=== PATIENT | male | born 1935 | race Caucasian/White ===

== ENCOUNTER 2016-04-20 16:48 | Observation (INO) | payer MEDICARE, MEDICAID ==
--- NOTE | 2016-04-20 17:00 | ED.PDOC ---
History of Present Illness - General Chief Complaint: Neuro Symptoms/Deficits Stated Complaint: agitation,altered mental status Time Seen by Provider: 04/20/16 16:59 Source: patient Exam Limitations: clinical condition, physical impairment Additional Information: Patient with tracheostomy tube and tongue surgery - History of Present Illness Initial Comments: Mr. Goodman Rivers,Kimberly.Kimberly. brought by ambulance after he was found to be agitated with sob by the family .On EMS arrival he was found to saturating O2-77% with 4L O2 by tracheostomy.He was then suctioned by ems and took out thick dry mucus plug.He has history of surgeries on his tongue,trachea and lungs due to cancer.No radiation or chemo.He is on 4L O2 by trach. Timing/Duration: 1-3 hours Severity: moderate Improving Factors: nothing Worsening Factors: nothing Associated Symptoms: denies symptoms Allergies/Adverse Reactions: Allergies NO KNOWN ALLERGY Allergy (Verified 02/15/16 01:05) Home Medications: Ambulatory Orders RX: Albuterol Sulfate 0.63 mg IN QID 09/11/13 RX: Dutasteride [Avodart] 0.5 mg PO DAILY 09/11/13 RX: Furosemide [Lasix Tab] 40 mg PO QAM 09/11/13 RX: HYDROcodone 10MG/APAP 325MG [[place] 10/325] 1 - 2 ea PO .Q6H PRN 09/11/13 RX: Insulin Lispro [Humalog] 0 unit SC ACHS PRN 09/11/13 RX: Metoprolol Succinate [Toprol Xl] 50 mg PO DAILY 09/11/13 RX: Omeprazole [Prilosec Cap] 40 mg PO ACBK 09/11/13 RX: Potassium Chloride [Micro-K] 10 meq PO DAILY 09/11/13 RX: Sertraline HCl [Zoloft] 50 mg PO BEDTIME 09/11/13 RX: Tamsulosin [Flomax] 0.4 mg PO BEDTIME 09/11/13 RX: Zaleplon [Sonata] 10 mg PO BEDTIME 09/11/13 RX: Gabapentin 100 mg PO DAILY 07/05/15 RX: Gabapentin 200 mg PO BEDTIME 07/05/15 RX: Spironolactone [Aldactone] 50 mg PO QID 07/05/15 RX: Telmisartan 40 mg PO DAILY 07/05/15 RX: Enoxaparin Sodium 1 mg/kg [Lovenox 1 mg/kg] 1 mg SUBCU Q24H 02/14/16 RX: Nitroglycerin [Nitrostat] 1 ea SL Q5MIN PRN #1 sub 02/15/16 Review of Systems - Review of Systems Constitutional: States: no symptoms reported EENTM: States: no symptoms reported Respiratory: States: short of breath Cardiology: States: no symptoms reported Gastrointestinal/Abdominal: States: no symptoms reported Genitourinary: States: no symptoms reported Musculoskeletal: States: no symptoms reported Skin: States: no symptoms reported Neurological: States: no symptoms reported Endocrine: States: no symptoms reported Hematologic/Lymphatic: States: no symptoms reported Past Medical History (General) - Patient Medical History Hx Seizures: No Hx Stroke: No Hx Dementia: No Hx Asthma: Yes Hx of COPD: Yes Hx Cardiac Disorders: Yes Hx Congestive Heart Failure: Yes Hx Pacemaker: No Hx Hypertension: Yes Hx Thyroid Disease: No Hx Diabetes: Yes Hx Gastroesophageal Reflux: Yes Hx Renal Disease: No Hx Cancer: Yes - Tongue Hx MRSA: Yes MRSA Source:: Sputum Surgical History: cancer surgery, other - throat,tongue,lung-cancer - Vaccination History Hx Influenza Vaccination: Yes Hx Pneumococcal Vaccination: Yes - Social History Hx Tobacco Use: Yes Hx Chewing Tobacco Use: Yes Hx Alcohol Use: No Hx Substance Use: No Hx Physical Abuse: No Hx Emotional Abuse: No - Activities of Daily Living Patient Lives Alone: No - family Grooming Ability: Independent Eating (Feeding) Ability: Independent Toileting Ability: Independent Family Medical History - Family History Father Family History: Unknown Living Status: Cause of : heart attack Hx Family Asthma: No Hx Family Congestive Heart Failure: No Hx Family Hypertension: Yes Hx Family Stroke: No Hx Cardiac Disease: Yes Hx Family Diabetes: No Hx Family Cancer: Yes - multiple family members-lung ,colon Mother Living Status: Cause of : kidney failure Hx Family Asthma: No Hx Family Congestive Heart Failure: No Hx Family Hypertension: Yes Hx Family Stroke: No Hx Cardiac Disease: No Hx Family Diabetes: No Hx Family Cancer: No Physical Exam - Physical Exam General Appearance: Alert, Anxious, No apparent distress Eye Exam: bilateral normal Ears, Nose, Throat: hearing grossly normal, normal ENT inspection, normal pharynx, other - tracheostomy patent Neck: non-tender, supple Respiratory: chest non-tender, respiratory distress - moderatwas suctioned by senior technical trainer breathing better, decreased breath sounds Cardiovascular/Chest: normal peripheral pulses, regular rate, rhythm, no gallop , no murmur Peripheral Pulses: radial,right: 2+, radial,left: 2+ Gastrointestinal/Abdominal: normal bowel sounds, non tender, soft, no organomegaly Back Exam: normal inspection, no CVA tenderness, no vertebral tenderness Extremity: non-tender, no pedal edema Neurologic: no motor/sensory deficits, alert Skin Exam: normal color, warm/dry Progress - EKG/XRAY/CT CT Ordered: Yes - head-no acute abnormalities noted Departure - Departure Clinical Impression: Uncontrolled hypertension, Altered awareness, transient, History of lung cancer , History of laryngeal cancer, H/O tongue cancer Time of Disposition: 21:13 - D/W Cecelia Limon-COURTNEY Hospitalist Disposition: Discharge to Home or Self Care Departure Forms: ED Discharge - Pt. Copy, Patient Portal Self Enrollment Referrals: Caio Velásquez MD [Primary Care Provider] - 1-2 Weeks Home Medications: Ambulatory Orders RX: Albuterol Sulfate 0.63 mg IN QID 09/11/13 RX: Dutasteride [Avodart] 0.5 mg PO DAILY 09/11/13 RX: Furosemide [Lasix Tab] 40 mg PO QAM 09/11/13 RX: HYDROcodone 10MG/APAP 325MG [[place] 10/325] 1 - 2 ea PO .Q6H PRN 09/11/13 RX: Insulin Lispro [Humalog] 0 unit SC ACHS PRN 09/11/13 RX: Metoprolol Succinate [Toprol Xl] 50 mg PO DAILY 09/11/13 RX: Omeprazole [Prilosec Cap] 40 mg PO ACBK 09/11/13 RX: Potassium Chloride [Micro-K] 10 meq PO DAILY 09/11/13 RX: Sertraline HCl [Zoloft] 50 mg PO BEDTIME 09/11/13 RX: Tamsulosin [Flomax] 0.4 mg PO BEDTIME 09/11/13 RX: Zaleplon [Sonata] 10 mg PO BEDTIME 09/11/13 RX: Gabapentin 100 mg PO DAILY 07/05/15 RX: Gabapentin 200 mg PO BEDTIME 07/05/15 RX: Spironolactone [Aldactone] 50 mg PO QID 07/05/15 RX: Telmisartan 40 mg PO DAILY 07/05/15 RX: Enoxaparin Sodium 1 mg/kg [Lovenox 1 mg/kg] 1 mg SUBCU Q24H 02/14/16 RX: Nitroglycerin [Nitrostat] 1 ea SL Q5MIN PRN #1 sub 02/15/16
[2016-04-20] MEDS ORDERED: IPRATROPIUM/ALBUTEROL 3 ML VIAL NEB ONE ×2 (17:03→17:09)
[2016-04-20] MEDS: cloNIDine HCL 0.1 MG TAB PO ONE ×2 (19:46→20:17)
[2016-04-20] MEDS ORDERED: SODIUM CHLORIDE 0.9% 10 ML VIAL ONE (19:53)
[2016-04-20] MEDS ORDERED: cloNIDine PATCH 0.2 MG/24HR 0.2 MG PATCH TD ONE ×2 (20:37→20:40)
[2016-04-20] MEDS ORDERED: SODIUM CHLORIDE 0.9% (FLUSH) 10 ML SYG IV PRN (22:41)
[2016-04-20] MEDS ORDERED: ALBUTEROL SULFATE 2.5 MG/3 ML VIAL NEB PRN (22:41)
[2016-04-20] MEDS ORDERED: GLUCAGON INJ 1 MG VIAL SUBCU PRN (22:46)
[2016-04-20] MEDS ORDERED: DEXTROSE 50% 25 GM/50 ML SYG IV PRN (22:46)
[2016-04-20] MEDS ORDERED: IV SET AND CAP CHANGE INJ INJ SCH (23:00)
[2016-04-21 04:02] VITALS: TEMP 98
[2016-04-21] MEDS ORDERED: SODIUM CHLORIDE 0.9% 10 ML VIAL IV PRN (06:49)
[2016-04-21] MEDS: INSULIN LISPRO 100 UNITS/ML PEN SUBCU SCH ×2 (07:30→11:43)
[2016-04-21] MEDS: IPRATROPIUM/ALBUTEROL 3 ML VIAL INH SCH ×2 (08:03→12:41)
[2016-04-21] MEDS ORDERED: SODIUM CHLORIDE 0.9% (FLUSH) 10 ML SYG IV SCH (09:00)
[2016-04-21] MEDS ORDERED: HYDROcodone 10MG/APAP 325MG 1 EA TAB PO PRN (09:26)
[2016-04-21] MEDS ORDERED: ZALEPLON 10 MG PO PRN (09:26)
[2016-04-21] MEDS ORDERED: NITROGLYCERIN 0.4 MG 25 EA TAB SL PRN (09:26)
[2016-04-21] MEDS ORDERED: GABAPENTIN 100 MG CAP PO SCH ×2 (09:30→21:00)
[2016-04-21] MEDS ORDERED: FUROSEMIDE 40 MG TAB PO SCH (09:30)
[2016-04-21] MEDS ORDERED: VALSARTAN 80 MG TAB PO SCH (09:30)
[2016-04-21] MEDS ORDERED: METOPROLOL SUCCINATE XL 50 MG TAB PO SCH (09:30)
[2016-04-21] MEDS ORDERED: DUTASTERIDE 0.5 MG CAP PO SCH (09:30)
[2016-04-21] MEDS ORDERED: NYSTATIN SUSPENSION 5 ML UD ONE (09:52)
[2016-04-21] MEDS ORDERED: OMEPRAZOLE CAP 20 MG CAP PO SCH (10:00)
[2016-04-21 10:08] VITALS: BP 136/79; O2SAT 100
--- NOTE | 2016-04-21 11:10 | SSS ---
SUPERVISING PHYSICIAN: Chio Velásquez MD HISTORY OF PRESENT ILLNESS: This is an 81-year-old male patient who has a long history of lung cancer with a left pneumonectomy as well as a throat and tongue cancer with a tracheostomy. He presented to the Emergency Room, agitated with altered mental status as well as shortness of breath. While he was in the ambulance, EMS reported that he had an O2 saturation of 77% on 4 liters via his tracheostomy. En route to the hospital, his tracheostomy was suctioned by EMS and they removed thick, dry mucus plug. He continued on 4 liters O2 by tracheostomy and his saturations came up to the low 90s. The family reported that on the day prior to admission he had stopped taking his oral medications and his mental status was altered. He usually is able to respond with yes/no questioning and interact with family, but he was unable to do that over the last two days and it progressively worsened. Since he had not taken his blood pressure medications, his blood pressure in the Emergency Room got as high as 203/102. It was also 218/94. A Catapres patch was placed on him and I was called for admission to the hospital. PAST MEDICAL HISTORY: 1. Atrial fibrillation. 2. Benign prostatic hypertension. 3. Diabetes mellitus, type 2. 4. Osteoporosis. 5. Congestive heart failure with an estimated ejection fraction of 70% by echocardiogram in 2005. 6. Coronary artery disease per CT[facility] in 2007. Dr. Lopze is following for moderate disease and at that time recommended medical management only. 7. Chronic obstructive pulmonary disease. 8. Lung cancer. 9. Throat cancer. 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 11. Cerebrovascular accident. PAST SURGICAL HISTORY: 1. Left lung resection in 1997. 2. Throat resection in 1995. 3. Tracheostomy in 2015. 4. Throat surgery in January of [address] Shearer. ALLERGIES: NO KNOWN ALLERGIES SOCIAL HISTORY: He lives at home with his . He has a past history of smoking and smokeless tobacco. He drinks alcohol socially. He denies any illicit drug use. OUTPATIENT MEDICATIONS: Per the EMR. HOSPITAL COURSE: The patient's blood pressure in the Emergency Room got as low as 188/68 and then overnight, it has stabilized down to 125/72. During the night, he was unable to answer any questions of the nursing staff. He was fairly lethargic until early this morning and he actually became more alert. He was able to answer simple yes/no questions and per family and Dr. Velásquez, he is now fairly close to his baseline. Overnight, his oxygen saturation stayed 94 % or higher. His CBC was fairly stable although his hemoglobin was 9.8 and his hematocrit was 29.9 this morning. Neutrophils were 86. His metabolic panel was stable with the exception of his creatinine was 1.32. Today, he is stable enough to be discharged home. DISCHARGE PLAN: The patient will be discharged home in stable condition. I have re-started his home medications and if he takes his oral medications without problems, I will discontinue the Catapres patch. I called [facility] and they will see him both on Sunday and Sunday to check his blood pressure as well as if he is taking his medications and his mental status. He has a followup appointment with Dr. Velásquez on 04/24/16, at 2 :45. It would probably be beneficial for him to be on hospice at least consider it at some point. I believe he sees Dr. Herrera and Dr. Beltre who is an interventional oncologist and he was supposed to have seen them in March sometime, but we have not gotten a report on that. He is to resume his previous diet. His family has been instructed to watch for mucus plugs in the trachea. I have given him robitussin tid to thin secreations. He is to followup with Dr. Velásquez's office, [facility] or return to the hospital if there are any recurrent symptoms or problems. DISCHARGE MEDICATIONS: 1. Albuterol. 2. Spironolactone. 3. Avodart. 4. Telmisartan. 5. Flomax. 6. Furosemide. 7. Gabapentin. 8. Nitroglycerin. 9. Hydrocodone. 10. Nystatin. 11. Omeprazole. 12. Sonata. 13. Metoprolol. 14. Sertraline. 15. Fluticasone. 16. Insulin. 17. Milk of Magnesia. 18. Morphine liquid. 19. Robitussin. Dr. Velásquez is the supervising physician and available for consultation. #[id number] [facility]
[2016-04-21] MEDS ORDERED: ALBUTEROL SULFATE 0.63 MG IN SCH (13:00)
[2016-04-21] MEDS ORDERED: NYSTATIN SUSPENSION 5 ML UD MT SCH (13:00)
[2016-04-21] MEDS ORDERED: guaiFENesin 100 MG/5 ML 10 ML UD PO SCH (15:00)
[2016-04-21] MEDS ORDERED: TAMSULOSIN 0.4 MG CAP PO SCH (21:00)
[2016-04-21] MEDS ORDERED: SERTRALINE HCL 50 MG TAB PO SCH (21:00)
[2016-04-22] MEDS ORDERED: SPIRONOLACTONE 25 MG TAB PO SCH (09:00)
--- NOTE | 2016-04-24 00:50 | CT ---
EXAM: Head CLINICAL INDICATION: 81-year-old female with high blood pressure and altered mental status. COMPARISON: 10/29/2015. TECHNIQUE: CT brain without contrast. FINDINGS: Multifocal regions of patchy hypoattenuation are present in a subcortical and periventricular deep white matter distribution, nonspecific; however, most likely represent small vessel ischemic disease, age indeterminate. Focal area of ovoid hypoattenuation present throughout the bilateral basal ganglia stable in comparison to the previous examination suggesting sequela of prior lacunar infarction. The ventricles, sulci, and cisterns are symmetric and unremarkable. The joyner-white matter differentiation is preserved. There is no mass effect, midline shift, intra- or extra-axial fluid collection/acute hemorrhage. The osseous structures are unremarkable. The paranasal sinuses reveal thickening of the RIGHT sphenoid sinus suggesting sinus disease otherwise remaining paranasal sinuses and mastoid air cells are clear. 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 IMPRESSION: 1. No acute intracranial abnormalities. Nonspecific white matter change most likely small vessel ischemic disease, age indeterminate. 2. CT is insensitive for early evaluation of acute stroke. If there is clinical concern for acute ischemia, an MRI may be considered. Electronically signed by: Rosibel Mandujano MD 04/20/2016 8:12 PM GRADING MACHINE OPERATOR
--- NOTE | 2016-04-27 10:47 | RAD ---
EXAM DESCRIPTION: Chest,1 View CLINICAL HISTORY: 81 years Male possible aspiration, diff breathing COMPARISON: 02/14/2016. FINDINGS: There is complete opacification of the left hemithorax with shift of the heart and mediastinum towards the left and elevation of the left hemidiaphragm. The changes are likely related to previous left pneumonectomy. Mild opacity at the medial right lung base appears similar and may represent mild atelectasis. No pneumothorax is visualized. There is a stable left chest port. IMPRESSION: There appear to be changes from previous left pneumonectomy. Mild opacity at the medial right lung base appears similar and may represent atelectasis. Electronically signed by: Tom Faustin MD 04/20/2016 5:47 PM ULTRASOUND TECHNOLOGIST SONOGRAPHER
== END 2016-04-21 14:15 | disposition home or self-care (01) ==
LOC: ER 16:48 → MS 21:17
PROVIDERS: ADMIT Nurse Practitioner Acute Care; ATTEND Nurse Practitioner Acute Care
DX: R06.02 Shortness of breath (principal); R09.02 Hypoxemia; R41.82 Altered mental status, unspecified; I10 Essential (primary) hypertension; I48.91 Unspecified atrial fibrillation; N40.0 Benign prostatic hyperplasia without lower urinary tract symptoms; E11.9 Type 2 diabetes mellitus without complications; M81.0 Age-related osteoporosis without current pathological fracture; I50.9 Heart failure, unspecified; I25.10 Atherosclerotic heart disease of native coronary artery without angina pectoris; J44.9 Chronic obstructive pulmonary disease, unspecified; Z93.0 Tracheostomy status; Z79.4 Long term (current) use of insulin; Z79.899 Other long term (current) drug therapy; Z85.118 Personal history of other malignant neoplasm of bronchus and lung; Z85.810 Personal history of malignant neoplasm of tongue; Z85.20 Personal history of malignant neoplasm of unspecified respiratory organ; Z86.73 Personal history of transient ischemic attack (TIA), and cerebral infarction without residual deficits; Z87.891 Personal history of nicotine dependence
CPT/HCPCS: 36415 ×2; 36416; 70450; 71010; 80053 ×2; 81001; 82948 ×3; 85025 ×2; 87070; 93005; 94640 ×3; 94762; 99284; G0378; J7620 ×3

== ENCOUNTER 2016-06-16 14:12 | Inpatient (IN) | payer OTHER ==
[2016-06-16] MEDS ORDERED: ONDANSETRON INJ 4 MG/2 ML VIAL IV PRN (15:46)
[2016-06-16] MEDS ORDERED: ATROPINE 1% SL PRN (15:47)
[2016-06-16] MEDS: HYDROmorphone HCL INJ 2 MG/ML VIAL IV SCH ×4 (15:48→22:25)
[2016-06-16] MEDS: IV SET AND CAP CHANGE INJ INJ SCH (15:49)
[2016-06-16] MEDS: SODIUM CHLORIDE 0.9% (FLUSH) 10 ML SYG IV PRN ×2 (15:49→18:00)
[2016-06-16] MEDS: SODIUM CHLORIDE 0.9% (FLUSH) 10 ML SYG IV SCH (21:25)
--- NOTE | 2016-06-16 21:44 | HP ---
SUPERVISING PHYSICIAN: Caio Velásquez M.D. CHIEF COMPLAINT: Respiratory failure secondary to advanced pneumonia complicated by multiple co-morbidities. HISTORY OF PRESENT ILLNESS: Mr. Enciso is an 81 year-old male patient that was admitted on 06/14/16 to [facility] [place] secondary to acute on chronic hypoxic respiratory failure contributed to by pneumonia. Mr. Enciso has an extensive history of multiple cancers to include laryngeal cancer, base of the tongue cancer as well as left sided lung cancer. He has underwent multiple surgeries in the past, including 2 surgeries for cancer of the tongue and laryngeal resection with bottleneck dissections as well as left pneumonectomy. He was initially brought in for significant shortness of breath and treated aggressively with antibiotic therapy, however he progressively worsened to the point that the family and the patient wished to forego any more advanced treatment as the patient's prognosis was extremely poor. Today, he was transferred from [facility] at the request of the family to [facility] inpatient care for care and comfort measures only. The patient was admitted to the hospital with a very poor prognosis. PAST MEDICAL HISTORY: 1. Atrial fibrillation with rapid ventricular response. 2. Coronary artery disease. 3. Hypertension. 4. Benign prostatic hypertrophy. 5. History of pulmonary embolisms. 6. History of gastrointestinal bleed. 7. Tracheal laryngeal lung cancer. 8. Previous cerebrovascular accident. PAST SURGICAL HISTORY: 1. Left lobectomy and right sided base lung cancer resection times 2. 2. Laryngectomy back in 1995 with bilateral lymph node dissection. 3. Tracheostomy in 2016. HOME MEDICATIONS: Please refer to the electronic medical records for an updated and verified list of medications. ALLERGIES: NO KNOWN DRUG ALLERGIES. RESUSCITATION STATUS: DO NOT RESUSCITATE. FAMILY HISTORY: Unable to obtain due to the patient's condition. SOCIAL HISTORY: The patient was currently living at home with his . He has a significant history of smoking both cigarettes and smokeless tobacco. REVIEW OF SYSTEMS: Unobtainable secondary to the patient's current condition. PHYSICAL EXAMINATION: VITAL SIGNS: Temperature 98.4, pulse 109, blood pressure 188/77, respirations 26, O2 94% on tracheostomy collar at 10 liters. Admission weight was 78.5 kg. GENERAL: The patient is unresponsive and obtunded. Currently wearing a tracheostomy collar. Appears to be comfortable. HEENT: Pupils are equal and reactive. Oropharynx is pink. Mucosal membranes are dry. NECK: Supple with tracheostomy opening in the lower part of the throat. Tracheotomy mask in place. CHEST: No obvious breath sounds on the left side, very diminished breath sounds throughout the right side with notable rhonchi with the patient being quite tachypneic and in comfort secondary to pain medications. CARDIOVASCULAR: Irregular rate and rhythm. No notable murmurs or rubs. ABDOMEN: Soft. Bowel sounds were hypoactive. NEUROLOGIC: The patient is obtunded. Responds only to deep pain stimulus. INTEGUMENT: Skin was warm and dry with no obvious rashes or lesions noted other than skin tears to the elbow from previous falls. LABORATORY AND RADIOLOGY: None were completed on admission. ASSESSMENT: 1. Acute on chronic hypoxemic respiratory failure contributed to by pneumonia with the patient failing to respond to aggressive inpatient therapy now being changed to Inpatient Hospice for care and comfort measures only. 2. Probable gram negative pneumonia in a patient with advanced chronic obstructive pulmonary disease and advanced lung cancer having failed to respond to previous treatment plan with antibiotics. 3. Diabetes type 2. 4. Atrial fibrillation with rapid ventricular response. PLAN: The patient was admitted to Inpatient Hospice care for [facility] for care and comfort measures only. The patient was placed in the hospital with orders provided by [facility] nurse. The patient's anticipated length of stay is 1 to 5 days with prognosis grim as the patient is showing to be unresponsive. Will continue to monitor the patient and assist family as needed, and provide care and comfort measures per hospice orders. Until the patient's ultimate , which is not unexpected, will continue to follow closely. Until then hospitalist services is available for any needed assistance. Once the patient has , arrangements have been in place. The patient's primary care provider, Dr. Velásquez, will be notified. #[id number] [facility]
[2016-06-17] MEDS: HYDROmorphone HCL INJ 2 MG/ML VIAL IV SCH ×12 (00:24→22:30)
[2016-06-17] MEDS: SODIUM CHLORIDE 0.9% (FLUSH) 10 ML SYG IV SCH ×2 (08:33→20:30)
[2016-06-17] MEDS: SODIUM CHLORIDE 0.9% (FLUSH) 10 ML SYG IV PRN ×3 (11:53→22:30)
[2016-06-18] MEDS: HYDROmorphone HCL INJ 2 MG/ML VIAL IV SCH ×12 (00:16→22:30)
[2016-06-18] MEDS: SODIUM CHLORIDE 0.9% (FLUSH) 10 ML SYG IV PRN ×6 (00:16→22:29)
[2016-06-18] MEDS: SODIUM CHLORIDE 0.9% (FLUSH) 10 ML SYG IV SCH ×2 (08:47→21:36)
[2016-06-18] MEDS ORDERED: SODIUM CHLORIDE 0.9% 10 ML VIAL ONE (20:10)
[2016-06-19] MEDS: SODIUM CHLORIDE 0.9% (FLUSH) 10 ML SYG IV PRN ×7 (00:29→23:59)
[2016-06-19] MEDS: HYDROmorphone HCL INJ 2 MG/ML VIAL IV SCH ×12 (00:30→22:09)
[2016-06-19] MEDS ORDERED: SODIUM CHLORIDE 0.9% 10 ML VIAL ONE (01:38)
[2016-06-19] MEDS: SODIUM CHLORIDE 0.9% (FLUSH) 10 ML SYG IV SCH ×2 (09:29→22:07)
[2016-06-19] MEDS: IV SET AND CAP CHANGE INJ INJ SCH (16:40)
[2016-06-19] MEDS ORDERED: ACETAMINOPHEN SUPPOSITORY 650 MG PR PRN (18:21)
[2016-06-19] MEDS ORDERED: HYDROmorphone HCL INJ 2 MG/ML VIAL IV PRN (18:21)
[2016-06-20] MEDS: SODIUM CHLORIDE 0.9% (FLUSH) 10 ML SYG IV PRN ×6 (02:15→23:44)
[2016-06-20] MEDS: HYDROmorphone HCL INJ 2 MG/ML VIAL IV SCH ×13 (02:16→23:45)
[2016-06-20] MEDS: SODIUM CHLORIDE 0.9% (FLUSH) 10 ML SYG IV SCH ×2 (09:06→20:22)
--- NOTE | 2016-06-20 22:15 | PCM.CORE ---
Physician DVT/VTE - Contraindications Mechanical Device Contraindication: Treatment not indicated - Hopsice care and comfort - Nurse DVT Assessment & Total Each Risk Factor Represents 3 Points: Age over 75 years Each Risk Factor Represents 2 Points: Malignancy (present/past) Each Risk Factor is 1 Point: Obesity (BMI >25) DVT Assessment Score: 6
[2016-06-21] MEDS: HYDROmorphone HCL INJ 2 MG/ML VIAL IV SCH ×6 (02:20→14:22)
[2016-06-21] MEDS: SODIUM CHLORIDE 0.9% (FLUSH) 10 ML SYG IV PRN ×4 (02:21→10:19)
[2016-06-21 02:44] VITALS: BP 101/45; TEMP 98.8
[2016-06-21] MEDS: SODIUM CHLORIDE 0.9% (FLUSH) 10 ML SYG IV SCH (08:30)
[2016-06-21 10:44] VITALS: O2SAT 73
== END 2016-06-21 13:50 | disposition expired | DRG 189 ==
LOC: MS 14:12
PROVIDERS: ADMIT Family Medicine; ATTEND Nurse Practitioner Family
DX: J96.21 Acute and chronic respiratory failure with hypoxia (principal); J15.6 Pneumonia due to other Gram-negative bacteria; J44.0 Chronic obstructive pulmonary disease with (acute) lower respiratory infection; C34.90 Malignant neoplasm of unspecified part of unspecified bronchus or lung; I48.91 Unspecified atrial fibrillation; I25.10 Atherosclerotic heart disease of native coronary artery without angina pectoris; I10 Essential (primary) hypertension; N40.0 Benign prostatic hyperplasia without lower urinary tract symptoms; E11.9 Type 2 diabetes mellitus without complications; Z86.711 Personal history of pulmonary embolism; Z86.73 Personal history of transient ischemic attack (TIA), and cerebral infarction without residual deficits; Z66 Do not resuscitate; Z93.0 Tracheostomy status; Z51.5 Encounter for palliative care; Z85.12 Personal history of malignant neoplasm of trachea; Z87.891 Personal history of nicotine dependence